=== PATIENT | female | born 1975 | race Caucasian/White ===

== ENCOUNTER 2017-07-05 22:27 | Emergency (ER) | payer OTHER ==
--- NOTE | 2017-07-05 22:40 | EDM.PDOC ---
ED HPI GENERAL MEDICAL PROBLEM - General Chief Complaint: Back Pain or Injury Stated Complaint: PAIN Time Seen by Provider: 07/05/17 22:39 Source of Information: Reports: Patient History Limitations: Reports: No Limitations - History of Present Illness INITIAL COMMENTS - FREE TEXT/NARRATIVE: 41 yo white female c/o left leg/thigh pain Onset: Today Onset Date: 07/05/17 Onset Time: 14:00 Duration: Hour(s): Location: Reports: Back, Lower Extremity, Left Quality: Reports: Burning Severity: Moderate Improves with: Reports: None Worsens with: Reports: None Context: Reports: Other (PMHx. Lumbar DDD w/ Disc Herniaton) Associated Symptoms: Reports: No Other Symptoms Left Lower Back Pain Score (Numeric/FACES): 10 - Related Data Allergies Allergy/AdvReac Type Severity Reaction Status Date / Time erythromycin lactobionate Allergy Severe Hives Verified 07/05/17 22:44 [From Erythrocin] Penicillins Allergy Intermediate Hives Verified 09/18/14 09:47 sulfamethoxazole Allergy Intermediate Hives Verified 07/05/17 22:44 [From Bactrim] trimethoprim [From Bactrim] Allergy Intermediate Hives Verified 07/05/17 22:44 rituximab [From Rituxan] Allergy Hives Verified 07/05/17 22:44 Sulfa (Sulfonamide Allergy Hives Verified 07/05/17 22:44 Antibiotics) vancomycin Allergy Hives Verified 07/05/17 22:44 ALL ANTIBI Allergy Hives Uncoded 07/05/17 22:44 Home Meds: Home Meds Atenolol [Tenormin] 25 mg PO DAILY 02/25/14 [History] atorvaSTATin [Lipitor] 40 mg PO BEDTIME 09/18/14 [History] Potassium Chloride [Klor-Con] 20 meq PO DAILY 09/27/15 [History] Divalproex Sodium [Depakote ER] 1,000 mg PO DAILY 07/05/17 [History] LORazepam [Ativan] 1 mg PO ASDIRECTED 07/05/17 [History] Methotrexate Sodium/PF [Methotrexate 25 mg/ml Vial] 1 ml IM WEEKLY 07/05/17 [ History] lamoTRIgine [Lamictal] 100 mg PO DAILY 07/05/17 [History] Past Medical History Musculoskeletal History: Reports: Fibromyalgia, RA Psychiatric History: Reports: Bipolar Other Endocrine/Metabolic History: blood sugar problems with being on steroids. Social & Family History - Tobacco Use Smoking Status *Q: Never Smoker Second Hand Smoke Exposure: No - Alcohol Use Days Per Week of Alcohol Use: 0 - Recreational Drug Use Recreational Drug Use: No - Living Situation & Occupation Living situation: Reports: , with Family ED ROS GENERAL - Review of Systems Review Of Systems: See Below Constitutional: Reports: No Symptoms HEENT: Reports: No Symptoms Respiratory: Reports: No Symptoms Cardiovascular: Reports: No Symptoms Endocrine: Reports: No Symptoms GI/Abdominal: Reports: No Symptoms Musculoskeletal: Reports: Back Pain, Leg Pain (left side) Skin: Reports: No Symptoms Neurological: Reports: Tingling (left leg) Psychiatric: Reports: No Symptoms Hematologic/Lymphatic: Reports: No Symptoms Immunologic: Reports: No Symptoms ED EXAM,LOWER BACK PAIN/INJURY - Physical Exam Exam: See Below Exam Limited By: No Limitations General Appearance: Alert, No Apparent Distress, Anxious Eye Exam: Bilateral Eye: EOMI, PERRL Ears: Normal External Exam Nose: Normal Inspection Throat/Mouth: Normal Inspection Head: Atraumatic Neck: Normal Inspection Respiratory/Chest: No Respiratory Distress Cardiovascular: Normal Peripheral Pulses GI/Abdominal: Normal Bowel Sounds Back Exam: Normal Inspection, Decreased Range of Motion Extremities: Normal Inspection, Leg Pain (left from back to thigh), Limited Range of Motion Neurological: Alert, Normal Mood/Affect, CN II-XII Intact, Difficulty Walking DTR - Lower Extremities: 2+: Knee (R), Knee (L) Psychiatric: Anxious Skin Exam: Warm, Dry Lymphatic: No Adenopathy Course - Vital Signs Last Recorded V/S: Last Vital Signs Temp 37.4 C 07/05/17 23:47 Pulse 79 07/05/17 23:47 Resp 18 07/05/17 23:47 BP 131/80 07/05/17 23:47 Pulse Ox 100 07/05/17 23:47 - Orders/Labs/Meds Orders: Active Orders 24 hr Category Date Time Status Orphenadrine [Norflex] Med 07/05/17 22:45 Active 60 mg IM Q12H Medication Orders Orphenadrine Citrate (Norflex) 60 mg IM Q12H ARIANNA Last Admin: 07/05/17 22:58 Dose: 60 mg Meds: Medications Generic Name Dose Route Start Last Admin Trade Name Freq PRN Reason Stop Dose Admin Orphenadrine Citrate 60 mg 07/05/17 22:45 07/05/17 22:58 Norflex IM 60 mg Q12H ARIANNA Administration Discontinued Medications Generic Name Dose Route Start Last Admin Trade Name Sarkis PRN Reason Stop Dose Admin Gabapentin 400 mg 07/05/17 22:47 07/05/17 23:10 Neurontin PO 07/05/17 22:48 400 mg ONETIME ONE Administration Hydromorphone HCl 1 mg 07/05/17 23:40 07/05/17 23:45 Dilaudid IM 07/05/17 23:41 1 mg ONETIME ONE Administration Ketorolac Tromethamine 30 mg 07/05/17 22:41 07/05/17 23:08 Toradol IM 07/05/17 22:42 30 mg ONETIME ONE Administration Ketorolac Tromethamine Confirm 07/05/17 23:04 07/05/17 23:09 Toradol Administered 07/05/17 23:05 Not Given Dose 30 mg .ROUTE .STK-MED ONE Departure - Departure Time of Disposition: 23:56 Disposition: Home, Self-Care 01 Condition: Fair Clinical Impression: Lumbar degenerative disc disease - Discharge Information Referrals: Cindy Wiseman MD [Primary Care Provider] - Forms: ED Department Discharge Additional Instructions: Rest No lifting , Pulling or Pushing Take your medications as prescribed by your PCP F/U w/ PCP - My Orders Last 24 Hours: My Active Orders 07/05/17 22:45 Orphenadrine [Norflex] 60 mg IM Q12H - Assessment/Plan Last 24 Hours: My Active Orders 07/05/17 22:45 Orphenadrine [Norflex] 60 mg IM Q12H
[2017-07-05] MEDS ORDERED: Ketorolac 30 MG/ML SDV IM ONE (22:41)
[2017-07-05] MEDS ORDERED: Gabapentin 400 MG Cap PO ONE (22:47)
[2017-07-05] MEDS ORDERED: Ketorolac 30 MG/ML SDV ONE (23:04)
[2017-07-05] MEDS ORDERED: HYDROmorphone 1 MG/ML Syringe IM ONE (23:40)
[2017-07-06] MEDS ORDERED: Promethazine 25 MG/ML SDV IM ONE (00:06)
[2017-07-06 00:17] VITALS: BP 131/90
== END 2017-07-06 00:20 | disposition home or self-care (01) ==
LOC: DL.ED 22:27
DX: M51.36 Other intervertebral disc degeneration, lumbar region (principal); Z88.1 Allergy status to other antibiotic agents; Z88.0 Allergy status to penicillin; Z88.2 Allergy status to sulfonamides; Z79.899 Other long term (current) drug therapy; R51 Headache
CPT/HCPCS: 70450; 72131; 96372; 99283; A9270; J1170; J1885; J2360; J2550

== ENCOUNTER 2019-09-09 01:20 | Emergency (ER) | payer OTHER ==
[2019-09-09] MEDS ORDERED: fentaNYL 100 MCG/2 ML SDV IVPUSH ONE (01:52)
[2019-09-09] MEDS ORDERED: methylPREDNISolone Sodium Succinate 125 MG/2 ML SDV IVPUSH ONE (01:52)
[2019-09-09 01:55] VITALS: BP 149/90; PULSE 99
--- NOTE | 2019-09-09 01:59 | EDM.PDOC ---
ED HPI GENERAL MEDICAL PROBLEM - General Chief Complaint: Allergic Reaction Stated Complaint: ALERGIC REACTION TO MEDS MAYBE Time Seen by Provider: 09/09/19 01:35 Source of Information: Reports: Patient History Limitations: Reports: No Limitations - History of Present Illness INITIAL COMMENTS - FREE TEXT/NARRATIVE: ED with c/o possible allergic reaction to cefdinir, states throat gets tight "every time she takes it". Put on last week in clinic due to cold sx. Hx RA on immunosuppressants. Has has sweats at night and fentanyl patches falling off. so pain not under control. Reports hx of fx tailbone and had joint injection "fgo bad and has raw nerve pain to left. Left Upper Leg Pain Score (Numeric/FACES): 8 - Related Data Allergies Allergy/AdvReac Type Severity Reaction Status Date / Time erythromycin lactobionate Allergy Severe Hives Verified 07/05/17 22:44 [From Erythrocin] Penicillins Allergy Intermediate Hives Verified 09/18/14 09:47 sulfamethoxazole Allergy Intermediate Hives Verified 07/05/17 22:44 [From Bactrim] trimethoprim [From Bactrim] Allergy Intermediate Hives Verified 07/05/17 22:44 rituximab [From Rituxan] Allergy Hives Verified 07/05/17 22:44 Sulfa (Sulfonamide Allergy Hives Verified 07/05/17 22:44 Antibiotics) vancomycin Allergy Hives Verified 07/05/17 22:44 ALL ANTIBI Allergy Hives Uncoded 07/05/17 22:44 Home Meds: Home Meds atenoloL [Tenormin] 25 mg PO DAILY 02/25/14 [History] atorvaSTATin [Lipitor] 40 mg PO BEDTIME 09/18/14 [History] Potassium Chloride [Klor-Con] 20 meq PO DAILY 09/27/15 [History] Divalproex Sodium [Depakote ER] 1,000 mg PO DAILY 07/05/17 [History] LORazepam [Ativan] 1 mg PO ASDIRECTED 07/05/17 [History] Methotrexate Sodium/PF [Methotrexate 25 mg/ml Vial] 1 ml IM WEEKLY 07/05/17 [ History] lamoTRIgine [Lamictal] 100 mg PO DAILY 07/05/17 [History] Past Medical History HEENT History: Reports: Impaired Vision Cardiovascular History: Reports: High Cholesterol, Hypertension Respiratory History: Reports: Asthma 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 Neurological History: Reports: Migraines Psychiatric History: Reports: Bipolar Other Endocrine/Metabolic History: blood sugar problems with being on steroids. Social & Family History - Caffeine Use Caffeine Use: Reports: Coffee - Living Situation & Occupation Living situation: Reports: , with Family ED ROS ALLERGIC REACTION - Review of Systems Review Of Systems: Comprehensive ROS is negative, except as noted in HPI. ED EXAM GENERAL NO PERIP PULSE - Physical Exam Exam: See Below Exam Limited By: No Limitations General Appearance: Alert, Anxious, Moderate Distress (No respiratory distress) Eye Exam: Bilateral Eye: EOMI, PERRL Ears: Normal External Exam Nose: Normal Inspection Throat/Mouth: Normal Inspection, Normal Lips, Normal Voice, No Airway Compromise Head: Atraumatic, Normocephalic Neck: Normal Inspection, Full Range of Motion Respiratory/Chest: No Respiratory Distress, Lungs Clear, Normal Breath Sounds. No: Decreased Breath Sounds, Rales, Rhonchi, Wheezing Cardiovascular: Normal Peripheral Pulses, Regular Rate, Rhythm GI/Abdominal: Normal Bowel Sounds, Soft Back Exam: Decreased Range of Motion, Paraspinal Tenderness (left lower) Extremities: Joint Swelling (arthritic deformities), Other Neurological: Alert, Oriented, Normal Cognition, No Motor/Sensory Deficits Psychiatric: Anxious Skin Exam: Warm, Dry, Normal Color, Wound/Incision (abrasion left upper chest from patches) Course - Vital Signs Last Recorded V/S: Last Vital Signs Temp 97.8 F 09/09/19 01:32 Pulse 99 09/09/19 01:32 Resp 16 09/09/19 01:32 BP 149/90 H 09/09/19 01:32 Pulse Ox 98 09/09/19 01:32 - Orders/Labs/Meds Labs: Laboratory Tests 09/09/19 09/09/19 09/09/19 Range/Units 02:12 02:12 02:12 WBC 12.8 H (5.0-10.0) 10^3/uL RBC 4.62 (4.2-5.4) 10^6/uL Hgb 14.5 D (12.0-16.0) g/dL Hct 41.5 (37.0-47.0) % MCV 89.8 (80-100) fL MCH 31.4 (27.0-34.0) pg MCHC 34.9 (33.0-35.0) g/dL Plt Count 287 D (150-450) 10^3/uL Neut % (Auto) 55.1 (42.2-75.2) % Lymph % (Auto) 33.9 (20.5-50.1) % Worth % (Auto) 9.5 H (2-8) % Eos % (Auto) 1.3 (1.0-3.0) % Baso % (Auto) 0.2 (0.0-1.0) % Add Manual Diff Yes Neutrophils % (Manual) 58 (42-75) % Band Neutrophils % 1 % Lymphocytes % (Manual) 33 (20-50) % Monocytes % (Manual) 8 (2-8) % Sodium 141 (135-145) mmol/L Potassium 3.6 (3.6-5.0) mmol/L Chloride 103 (101-111) mmol/L Carbon Dioxide 24.0 (21.0-31.0) mmol/L Anion Gap 17.6 BUN 12 (7-18) mg/dL Creatinine 0.7 (0.6-1.3) mg/dL Est Cr Clr Drug Dosing 79.00 mL/min Estimated GFR (MDRD) > 60 BUN/Creatinine Ratio 17.14 Glucose 104 (74-105) mg/dL Lactic Acid 3.8 H* (0.5-2.0) mmol/L Calcium 9.8 (8.4-10.2) mg/dl Total Bilirubin 0.6 (0.2-1.0) mg/dL AST 21 (10-42) IU/L ALT 26 (10-60) IU/L Alkaline Phosphatase 27 L (42-121) IU/L C-Reactive Protein (0.0-1.3) mg/dL Total Protein 7.6 (6.7-8.2) g/dl Albumin 5.1 (3.2-5.5) g/dl Globulin 2.5 Albumin/Globulin Ratio 2.04 09/09/19 Range/Units 02:12 WBC (5.0-10.0) 10^3/uL RBC (4.2-5.4) 10^6/uL Hgb (12.0-16.0) g/dL Hct (37.0-47.0) % MCV (80-100) fL MCH (27.0-34.0) pg MCHC (33.0-35.0) g/dL Plt Count (150-450) 10^3/uL Neut % (Auto) (42.2-75.2) % Lymph % (Auto) (20.5-50.1) % Worth % (Auto) (2-8) % Eos % (Auto) (1.0-3.0) % Baso % (Auto) (0.0-1.0) % Add Manual Diff Neutrophils % (Manual) (42-75) % Band Neutrophils % % Lymphocytes % (Manual) (20-50) % Monocytes % (Manual) (2-8) % Sodium (135-145) mmol/L Potassium (3.6-5.0) mmol/L Chloride (101-111) mmol/L Carbon Dioxide (21.0-31.0) mmol/L Anion Gap BUN (7-18) mg/dL Creatinine (0.6-1.3) mg/dL Est Cr Clr Drug Dosing mL/min Estimated GFR (MDRD) BUN/Creatinine Ratio Glucose (74-105) mg/dL Lactic Acid (0.5-2.0) mmol/L Calcium (8.4-10.2) mg/dl Total Bilirubin (0.2-1.0) mg/dL AST (10-42) IU/L ALT (10-60) IU/L Alkaline Phosphatase (42-121) IU/L C-Reactive Protein < 0.5 (0.0-1.3) mg/dL Total Protein (6.7-8.2) g/dl Albumin (3.2-5.5) g/dl Globulin Albumin/Globulin Ratio Meds: Medications Discontinued Medications Generic Name Dose Route Start Last Admin Trade Name Freq PRN Reason Stop Dose Admin Fentanyl 50 mcg 09/09/19 01:52 09/09/19 02:15 Sublimaze IVPUSH 09/09/19 01:53 50 mcg ONETIME ONE Administration Lorazepam 1 mg 09/09/19 02:10 09/09/19 02:15 Ativan PO 09/09/19 02:11 1 mg ONETIME ONE Administration Methylprednisolone Sodium Succinate 125 mg 09/09/19 01:52 09/09/19 02:06 Solu-Medrol IVPUSH 09/09/19 01:53 125 mg ONETIME ONE Administration - Re-Assessments/Exams Free Text/Narrative Re-Assessment/Exam: Port accessed for steroid. Med infused without difficulty and easily accessed shortly few minutes after patient c/o burning at site of needle demanding access be removed. Pain medication given IM and almost immediate improvement in symptoms. Patient does voice concern or "sx being related to withdrawal." [facility] ecord reviewed. Patient should have enough medication to last through to clinic follow up with PCP early this week . Departure - Departure Time of Disposition: 03:07 Disposition: Home, Self-Care 01 Condition: Good Clinical Impression: Chronic pain, Anxiety about health - Discharge Information *PRESCRIPTION DRUG MONITORING PROGRAM REVIEWED*: No *COPY OF PRESCRIPTION DRUG MONITORING REPORT IN PATIENT CHADD: No Instructions: Chronic Pain, Adult Referrals: Cindy Wiseman MD [Primary Care Provider] - Forms: ED Department Discharge Additional Instructions: stop antibiotic follow up in clinic with Dr Wiseman Increase fluids today Sepsis Event Note - Focused Exam Vital Signs: Vital Signs Temp Pulse Resp BP Pulse Ox 09/09/19 01:32 97.8 F 99 16 149/90 H 98 Date Exam was Performed: 09/09/19 Time Exam was Performed: 05:32
[2019-09-09] MEDS ORDERED: LORazepam 1 MG Tab PO ONE (02:10)
[2019-09-09 02:39] LABS: ANION GAP 17.6; CHLORIDE,CL 103 mmol/L (101-111); SODIUM,NA 141 mmol/L (135-145)
== END 2019-09-09 03:26 | disposition home or self-care (01) ==
LOC: DL.ED 01:20
DX: G89.29 Other chronic pain (principal); F41.9 Anxiety disorder, unspecified; I10 Essential (primary) hypertension; J45.909 Unspecified asthma, uncomplicated; Z88.1 Allergy status to other antibiotic agents; Z88.0 Allergy status to penicillin; Z88.2 Allergy status to sulfonamides; Z88.7 Allergy status to serum and vaccine; Z88.8 Allergy status to other drugs, medicaments and biological substances; Z79.899 Other long term (current) drug therapy
CPT/HCPCS: 36415; 80053; 83605; 85025; 86140; 96372; 96374; 99283; A9270; J2930; J3010

== ENCOUNTER 2020-04-04 12:15 | Emergency (ER) | payer OTHER ==
[~2020-04-04 12:15] MED LIST: Activated Charcoal/Water Susp 50 GM/240 ML Tube PO ONE; Ondansetron 4 MG/2 ML SDV IVPUSH ONE; Sodium Chloride 0.9% 1,000 ML IV ONE
[2020-04-04] MEDS ORDERED: Iopamidol 612 MG/ML 100 ML Bottle IVPUSH ONE (12:51)
[2020-04-04 12:53] LABS: ACETAMINOPHEN 10 ug/mL (10-30 (Therapeutic)); ANION GAP 15.3 mEq/L (7-13); CHLORIDE,CL 104 mmol/L (98-107); SODIUM,NA 143 mmol/L (136-145)
[2020-04-04 13:33] LABS: PTT,PARTIAL THROMBOPLSTIN TIME 22.9 SEC (22.0-34.0)
--- NOTE | 2020-04-04 14:37 | CR ---
PROCEDURE INFORMATION: Exam: XR Right Knee Exam date and time: 04/04/2020 1:46 PM Age: 44 years old Clinical indication: Other: Fall, recent surgery; Prior surgery; Surgery date: <1 month; Surgery type: 1 week ago TECHNIQUE: Imaging protocol: XR Right knee. Views: 1 or 2 views. COMPARISON: MR Knee wo Cont Rt 08/08/2019 9:42 AM FINDINGS: Bones/joints: Patient has undergone knee replacement with a femoral condyle prosthesis and a tibial plateau prosthesis. Patellofemoral joint degenerative changes posterior aspect of the patella is again noted. There is large amount of swelling peer to the patella in the soft tissues. No acute fractures identified. Soft tissues: See "Bones/joints" finding. IMPRESSION: Postsurgical changes with. No of fracture or dislocation. There is a large amount of soft tissue swelling superior to the patella on the lateral view.
--- NOTE | 2020-04-04 14:46 | CT ---
PROCEDURE INFORMATION: Exam: CT Cervical Spine Without Contrast Exam date and time: 04/04/2020 2:05 PM Age: 44 years old Clinical indication: Other: Fall, head neck face injury TECHNIQUE: Imaging protocol: Computed tomography images of the cervical spine without contrast. Radiation optimization: All CT scans at this facility use at least one of these dose optimization techniques: automated exposure control; mA and/or kV adjustment per patient size (includes targeted exams where dose is matched to clinical indication); or iterative reconstruction. COMPARISON: No relevant prior studies available. FINDINGS: Vertebrae: Mild straightening of the cervical spine with reversal of the normal cervical lordosis. C2-C3: Patient has marked hypertrophic changes on the right at C2-C3 with inferior neural foraminal narrowing at this level. C3-C4: Uncovertebral hypertrophic changes at C3-C4 causing bilateral inferior neural foraminal narrowing. C4-C5: Anterior osteophyte formation C5-C6: Anterior osteophyte formation C6-C7: No significant disc protrusion. No severe spinal canal stenosis. No significant neural foraminal narrowing. C7-T1: No significant disc protrusion. No severe spinal canal stenosis. No significant neural foraminal narrowing. Soft tissues: Unremarkable. Lungs: Lung apices are normal. IMPRESSION: Degenerative changes in the cervical spine as described above. No evidence of acute fracture. Some reversal of the normal cervical lordosis.
--- NOTE | 2020-04-04 14:50 | CT ---
PROCEDURE INFORMATION: Exam: CT Maxillofacial Without Contrast Exam date and time: 04/04/2020 2:05 PM Age: 44 years old Clinical indication: Other: Fall, head neck face injury TECHNIQUE: Imaging protocol: Computed tomography images of the face without contrast. Radiation optimization: All CT scans at this facility use at least one of these dose optimization techniques: automated exposure control; mA and/or kV adjustment per patient size (includes targeted exams where dose is matched to clinical indication); or iterative reconstruction. COMPARISON: No relevant prior studies available. FINDINGS: Orbits: Patient has swelling over left and superior aspect of the right orbit. The globe appears intact. Bones/joints: See "Soft tissues" finding. Sinuses: See "Nasal cavity" finding. Nasal cavity: There is congestion in the right nasal passage. There is some soft tissue thickening seen in the region of both ostiomeatal complexes. There is minimal coastal thickening in the right maxillary sinus but no air levels are identified. Soft tissues: There is soft tissue swelling over the left frontal bone. No underlying fractures identified. The left soft tissue swelling extends in front of the left eye. The globe appears intact. IMPRESSION: No evidence of a acute fracture. Soft tissue swelling anterior to the left and left. No underlying fracture is identified.
--- NOTE | 2020-04-04 14:53 | CT ---
PROCEDURE INFORMATION: Exam: CT Head Without Contrast Exam date and time: 04/04/2020 2:05 PM Age: 44 years old Clinical indication: Other: Fall, head neck face injury TECHNIQUE: Imaging protocol: Computed tomography of the head without contrast. Radiation optimization: All CT scans at this facility use at least one of these dose optimization techniques: automated exposure control; mA and/or kV adjustment per patient size (includes targeted exams where dose is matched to clinical indication); or iterative reconstruction. COMPARISON: No relevant prior studies available. FINDINGS: Brain: See "Ventricles" finding. Ventricles: Intracranially the ventricular system appears normal in size and position. There is minimal frontal lobe atrophy. Bones/joints: Unremarkable. No acute fracture. Sinuses: Visualized sinuses are unremarkable. No fluid levels. Mastoid air cells: Visualized mastoid air cells are well aerated. Soft tissues: Soft Tissue swelling and subcutaneous hematoma over the left frontal bone no underlying fracture. IMPRESSION: Soft tissue swelling consistent with a subcutaneous hematoma along the frontal bone extending anterior to the left eye. Mild frontal lobe atrophy.
[2020-04-04 15:02] VITALS: BP 138/95; PULSE 83
--- NOTE | 2020-04-04 15:24 | EDM.PDOCBH ---
Scribed by Nandini Mccloud 04/04/20 1524 for Oumou Mccord MD ED HPI GENERAL MEDICAL PROBLEM - General Chief Complaint: Drug or Alcohol Abuse Stated Complaint: AMBULANCE Time Seen by Provider: 04/04/20 12:20 Source of Information: Reports: Patient, EMS, EMS Notes Reviewed, RN, RN Notes Reviewed History Limitations: Reports: No Limitations - History of Present Illness INITIAL COMMENTS - FREE TEXT/NARRATIVE: Patient arrives to ED by [facility]. Patient states that on 03/27/20 she had right knee surgery. She got 90 Percocet/90 days. She took a handful of the Remeron and Lamictal. She took a handful of each (approximately 10 tablets of each medication) at 10:30 hours. She is also on [place]. Around 11 A.M. she fell and bumped her head. She thinks she had a seizure with no loss of consciousness. No nausea. She has knee pain. Onset: Today Severity: Severe Improves with: Reports: None Worsens with: Reports: None Associated Symptoms: Reports: No Other Symptoms Generalized Pain Score (Numeric/FACES): 10 - Related Data Allergies Allergy/AdvReac Type Severity Reaction Status Date / Time erythromycin lactobionate Allergy Severe Hives Verified 07/05/17 22:44 [From Erythrocin] Penicillins Allergy Intermediate Hives Verified 09/18/14 09:47 sulfamethoxazole Allergy Intermediate Hives Verified 07/05/17 22:44 [From Bactrim] trimethoprim [From Bactrim] Allergy Intermediate Hives Verified 07/05/17 22:44 rituximab [From Rituxan] Allergy Hives Verified 07/05/17 22:44 Sulfa (Sulfonamide Allergy Hives Verified 07/05/17 22:44 Antibiotics) vancomycin Allergy Hives Verified 07/05/17 22:44 ALL ANTIBI Allergy Hives Uncoded 07/05/17 22:44 Home Meds: Home Meds atenoloL [Tenormin] 25 mg PO DAILY 02/25/14 [History] Potassium Chloride [Klor-Con] 20 meq PO DAILY 09/27/15 [History] Divalproex Sodium [Depakote ER] 1,250 mg PO DAILY 07/05/17 [History] Methotrexate Sodium/PF [Methotrexate 25 mg/ml Vial] 1 ml IM WEEKLY 07/05/17 [History] lamoTRIgine [Lamictal] 100 mg PO DAILY 07/05/17 [History] Meloxicam 1 tab PO DAILY 04/04/20 [History] Mirtazapine 45 mg PO DAILY 04/04/20 [History] calcitrioL [Calcitriol] 1 cap PO ASDIRECTED 04/04/20 [History] Past Medical History HEENT History: Reports: Impaired Vision Cardiovascular History: Reports: High Cholesterol, Hypertension Respiratory History: Reports: Asthma [employer] History: Reports: Other (See Below) Other [employer] History: tubal Musculoskeletal History: Reports: Fibromyalgia, RA Other Musculoskeletal History: gittelmans disorder. Neurological History: Reports: Migraines Psychiatric History: Reports: Bipolar Other Endocrine/Metabolic History: blood sugar problems with being on steroids. Social & Family History - Family History Family Medical History: Noncontributory - Caffeine Use Caffeine Use: Reports: Coffee - Living Situation & Occupation Living situation: Reports: , with Family ED ROS GENERAL - Review of Systems Review Of Systems: Comprehensive ROS is negative, except as noted in HPI. ED EXAM, BEHAVIORAL HEALTH - Physical Exam Exam: See Below Exam Limited By: No Limitations General Appearance: Alert, WD/WN, No Apparent Distress Head: Atraumatic, Normocephalic Neck: Other (she has a C-collar on. ) Respiratory/Chest: No Respiratory Distress, Lungs Clear, Normal Breath Sounds, No Accessory Muscle Use, Chest Non-Tender Cardiovascular: Normal Peripheral Pulses, Regular Rate, Rhythm, No Edema, No Gallop, No JVD, No Murmur, No Rub Back Exam: Normal Inspection Skin Exam: Other (bruise around right knee and lower leg.) EKG INTERPRETATION EKG Date: 04/04/20 Time: 13:16 Rhythm: Other (sinus tachycardia\) Rate (Beats/Min): 106 [place]: Normal P-Wave: Present QRS: Other (baseline wonder, otherwise normal QRS.) ST-T: Normal QT: Normal COURSE, BEHAVIORAL HEALTH COMP - Course Vital Signs: Last Vital Signs Temp 98.8 F 04/04/20 15:01 Pulse 83 04/04/20 15:01 Resp 14 04/04/20 15:01 BP 138/95 H 04/04/20 15:01 Pulse Ox 100 04/04/20 15:01 Orders, Labs, Meds: Active Orders 24 hr Category Date Time Status EKG 12 Lead [EKG Documentation Completion] [RC] STAT Care 04/04/20 12:54 Active Implanted Port Access [RC] ONETIME Care 04/04/20 12:08 Active Consult to Poison Control [CONS] Urgent Cons 04/04/20 12:15 Ordered CULTURE URINE [RM] Stat Lab 04/04/20 13:04 Received LAMOTRIGINE, SERUM [REF] Routine Lab 04/04/20 12:24 Received VALPROIC ACID [REF] Stat Lab 04/04/20 12:24 Received Laboratory Tests 04/04/20 04/04/20 04/04/20 Range/Units 12:24 12:24 12:24 WBC 9.7 (5.0-10.0) 10^3/uL RBC 3.63 L (4.2-5.4) 10^6/uL Hgb 11.2 L D (12.0-16.0) g/dL Hct 33.1 L (37.0-47.0) % MCV 91.2 (80-100) fL MCH 30.9 (27.0-34.0) pg MCHC 33.8 (33.0-35.0) g/dL Plt Count 368 D (150-450) 10^3/uL Neut % (Auto) 66.0 (42.2-75.2) % Lymph % (Auto) 22.1 (20.5-50.1) % [place] % (Auto) 7.6 (2-8) % Eos % (Auto) 3.9 H (1.0-3.0) % Baso % (Auto) 0.4 (0.0-1.0) % PT (9.0-12.0) SEC INR (0.9-1.2) APTT (22.0-34.0) SEC Sodium 143 (136-145) mmol/L Potassium 3.3 L (3.5-5.1) mmol/L Chloride 104 (98-107) mmol/L Carbon Dioxide 27 (21-32) mmol/L Anion Gap 15.3 H (7-13) mEq/L BUN 8 (7-18) mg/dL Creatinine 0.81 (0.55-1.02) mg/dL Est Cr Clr Drug Dosing TNP Estimated GFR (MDRD) > 60 BUN/Creatinine Ratio 9.9 (No establ ref range) Glucose 91 (74-99) mg/dL Calcium 8.9 (8.5-10.1) mg/dL Total Bilirubin 0.4 (0.2-1.0) mg/dL AST 13 L (15-37) U/L ALT 23 (14-59) U/L Alkaline Phosphatase 22 L (46-116) U/L Total Protein 6.7 (6.4-8.2) g/dL Albumin 3.9 (3.4-5.0) g/dL Globulin 2.8 Albumin/Globulin Ratio 1.4 Urine Color (YELLOW) Urine Appearance (CLEAR) Urine pH (5.0-9.0) Ur Specific [place] (1.005-1.030) Urine Protein (NEGATIVE) Urine Glucose (UA) (NEGATIVE) Urine Ketones (NEGATIVE) Urine Occult Blood (NEGATIVE) Urine Nitrite (NEGATIVE) Urine Bilirubin (NEGATIVE) Urine Urobilinogen (0.2-1.0) mg/dL Ur Leukocyte Esterase (NEGATIVE) Urine RBC /HPF Urine WBC (0-5/HPF) /HPF Ur Epithelial Cells (NOT SEEN) /HPF Amorphous Sediment (NOT SEEN) /HPF Urine Bacteria (0-FEW/HPF) /HPF Urine Mucus (NOT SEEN) /LPF Urine HCG, Qual Salicylates < 2.8 L (2.8-20(Therapeutic)) mg/dL Urine Opiates Screen (NEGATIVE) Ur Oxycodone Screen (NEGATIVE) Urine Methadone Screen (NEGATIVE) Acetaminophen 10 (10-30 (Therapeutic)) ug/mL Ur Barbiturates Screen (NEGATIVE) U Tricyclic Antidepress (NEGATIVE) Ur Phencyclidine Scrn (NEGATIVE) Ur Amphetamine Screen (NEGATIVE) U Methamphetamines Scrn (NEGATIVE) Urine MDMA Screen (NEGATIVE) U Benzodiazepines Scrn (NEGATIVE) Urine Cocaine Screen (NEGATIVE) U Marijuana (THC) Screen (NEGATIVE) Ethyl Alcohol < 3 (0) mg/dL 04/04/20 04/04/20 04/04/20 Range/Units 12:24 13:04 13:04 WBC (5.0-10.0) 10^3/uL RBC (4.2-5.4) 10^6/uL Hgb (12.0-16.0) g/dL Hct (37.0-47.0) % MCV (80-100) fL MCH (27.0-34.0) pg MCHC (33.0-35.0) g/dL Plt Count (150-450) 10^3/uL Neut % (Auto) (42.2-75.2) % Lymph % (Auto) (20.5-50.1) % [place] % (Auto) (2-8) % Eos % (Auto) (1.0-3.0) % Baso % (Auto) (0.0-1.0) % PT 11.0 (9.0-12.0) SEC INR 1.2 (0.9-1.2) APTT 22.9 (22.0-34.0) SEC Sodium (136-145) mmol/L Potassium (3.5-5.1) mmol/L Chloride (98-107) mmol/L Carbon Dioxide (21-32) mmol/L Anion Gap (7-13) mEq/L BUN (7-18) mg/dL Creatinine (0.55-1.02) mg/dL Est Cr Clr Drug Dosing Estimated GFR (MDRD) BUN/Creatinine Ratio (No establ ref range) Glucose (74-99) mg/dL Calcium (8.5-10.1) mg/dL Total Bilirubin (0.2-1.0) mg/dL AST (15-37) U/L ALT (14-59) U/L Alkaline Phosphatase (46-116) U/L Total Protein (6.4-8.2) g/dL Albumin (3.4-5.0) g/dL Globulin Albumin/Globulin Ratio Urine Color (YELLOW) Urine Appearance (CLEAR) Urine pH (5.0-9.0) Ur Specific [place] (1.005-1.030) Urine Protein (NEGATIVE) Urine Glucose (UA) (NEGATIVE) Urine Ketones (NEGATIVE) Urine Occult Blood (NEGATIVE) Urine Nitrite (NEGATIVE) Urine Bilirubin (NEGATIVE) Urine Urobilinogen (0.2-1.0) mg/dL Ur Leukocyte Esterase (NEGATIVE) Urine RBC /HPF Urine WBC (0-5/HPF) /HPF Ur Epithelial Cells (NOT SEEN) /HPF Amorphous Sediment (NOT SEEN) /HPF Urine Bacteria (0-FEW/HPF) /HPF Urine Mucus (NOT SEEN) /LPF Urine HCG, Qual Negative Salicylates (2.8-20(Therapeutic)) mg/dL Urine Opiates Screen Negative (NEGATIVE) Ur Oxycodone Screen Positive H (NEGATIVE) Urine Methadone Screen Negative (NEGATIVE) Acetaminophen (10-30 (Therapeutic)) ug/mL Ur Barbiturates Screen Negative (NEGATIVE) U Tricyclic Antidepress Negative (NEGATIVE) Ur Phencyclidine Scrn Negative (NEGATIVE) Ur Amphetamine Screen Negative (NEGATIVE) U Methamphetamines Scrn Negative (NEGATIVE) Urine MDMA Screen Negative (NEGATIVE) U Benzodiazepines Scrn Negative (NEGATIVE) Urine Cocaine Screen Negative (NEGATIVE) U Marijuana (THC) Screen Positive H (NEGATIVE) Ethyl Alcohol (0) mg/dL 04/04/20 Range/Units 13:04 WBC (5.0-10.0) 10^3/uL RBC (4.2-5.4) 10^6/uL Hgb (12.0-16.0) g/dL Hct (37.0-47.0) % MCV (80-100) fL MCH (27.0-34.0) pg MCHC (33.0-35.0) g/dL Plt Count (150-450) 10^3/uL Neut % (Auto) (42.2-75.2) % Lymph % (Auto) (20.5-50.1) % [place] % (Auto) (2-8) % Eos % (Auto) (1.0-3.0) % Baso % (Auto) (0.0-1.0) % PT (9.0-12.0) SEC INR (0.9-1.2) APTT (22.0-34.0) SEC Sodium (136-145) mmol/L Potassium (3.5-5.1) mmol/L Chloride (98-107) mmol/L Carbon Dioxide (21-32) mmol/L Anion Gap (7-13) mEq/L BUN (7-18) mg/dL Creatinine (0.55-1.02) mg/dL Est Cr Clr Drug Dosing Estimated GFR (MDRD) BUN/Creatinine Ratio (No establ ref range) Glucose (74-99) mg/dL Calcium (8.5-10.1) mg/dL Total Bilirubin (0.2-1.0) mg/dL AST (15-37) U/L ALT (14-59) U/L Alkaline Phosphatase (46-116) U/L Total Protein (6.4-8.2) g/dL Albumin (3.4-5.0) g/dL Globulin Albumin/Globulin Ratio Urine Color Yellow (YELLOW) Urine Appearance Cloudy (CLEAR) Urine pH 6.5 (5.0-9.0) Ur Specific [place] 1.015 (1.005-1.030) Urine Protein Trace H (NEGATIVE) Urine Glucose (UA) Negative (NEGATIVE) Urine Ketones 40 H (NEGATIVE) Urine Occult Blood Negative (NEGATIVE) Urine Nitrite Negative (NEGATIVE) Urine Bilirubin Negative (NEGATIVE) Urine Urobilinogen 0.2 (0.2-1.0) mg/dL Ur Leukocyte Esterase Negative (NEGATIVE) Urine RBC 0-5 /HPF Urine WBC 5-10 H (0-5/HPF) /HPF Ur Epithelial Cells Moderate H (NOT SEEN) /HPF Amorphous Sediment Moderate H (NOT SEEN) /HPF Urine Bacteria Moderate H (0-FEW/HPF) /HPF Urine Mucus Many H (NOT SEEN) /LPF Urine HCG, Qual Salicylates (2.8-20(Therapeutic)) mg/dL Urine Opiates Screen (NEGATIVE) Ur Oxycodone Screen (NEGATIVE) Urine Methadone Screen (NEGATIVE) Acetaminophen (10-30 (Therapeutic)) ug/mL Ur Barbiturates Screen (NEGATIVE) U Tricyclic Antidepress (NEGATIVE) Ur Phencyclidine Scrn (NEGATIVE) Ur Amphetamine Screen (NEGATIVE) U Methamphetamines Scrn (NEGATIVE) Urine MDMA Screen (NEGATIVE) U Benzodiazepines Scrn (NEGATIVE) Urine Cocaine Screen (NEGATIVE) U Marijuana (THC) Screen (NEGATIVE) Ethyl Alcohol (0) mg/dL Medications Discontinued Medications Generic Name Dose Route Start Last Admin Trade Name Sarkis PRN Reason Stop Dose Admin Charcoal 50 gm 04/04/20 12:14 04/04/20 12:32 Actidose-Aqua PO 04/04/20 12:15 50 gm ONETIME ONE Administration Sodium Chloride 1,000 mls @ 999 mls/hr 04/04/20 12:13 04/04/20 12:32 Normal Saline IV 04/04/20 13:13 999 mls/hr .BOLUS ONE Administration Iopamidol 100 ml 04/04/20 12:51 Isovue-300 (61%) IVPUSH 04/04/20 12:52 ONETIME ONE Ondansetron HCl 4 mg 04/04/20 12:14 04/04/20 12:33 Zofran IVPUSH 04/04/20 12:15 4 mg ONETIME ONE Administration Re-Assessment/Re-Exam: Right knee x-ray: Postsurgical changes with. No of fracture or dislocation. There is a large amount of soft tissue swelling superior to the patella on the lateral view. See rad report. Head CT: Soft tissue swelling consistent with a subcutaneous hematoma along the frontal bone extending anterior to the left eye. Mild frontal lobe atrophy. See rad report. CT cervical spine: Degenerative changes in the cervical spine as described above. No evidence of acute fracture. Some reversal of the normal cervical lordosis. See rad report/ CT max/sinus: No evidence of acute fracture. Soft tissue swelling anterior to the left. No underlying fracture is identified. See rad report. Poison Control was contacted and recommended 4 hours of monitoring for the Lamictal and 12 hours of monitoring for the Remeron, or until she is no longer sedated. Labs and EKG ordered per recommendation. Departure - Departure Time of Disposition: 15:13 Disposition: DC/Tfer to Acute Hospital 02 Condition: Poor Clinical Impression: Overdose of medication Qualifiers: Encounter type: initial encounter Injury intent: undetermined intent Qualified Code(s): T50.904A - Poisoning by unspecified drugs, medicaments and biological substances, undetermined, initial encounter Facial contusion Qualifiers: Encounter type: initial encounter Qualified Code(s): S00.83XA - Contusion of other part of head, initial encounter - Discharge Information *PRESCRIPTION DRUG MONITORING PROGRAM REVIEWED*: Not Applicable *COPY OF PRESCRIPTION DRUG MONITORING REPORT IN PATIENT CHADD: Not Applicable Referrals: Cindy Wiseman MD [Primary Care Provider] - Forms: ED Department Discharge, Interfacility Transfer [facility] Sepsis Event Note (ED) - Focused Exam Vital Signs: Vital Signs Temp Pulse Resp BP Pulse Ox 04/04/20 15:01 98.8 F 83 14 138/95 H 100 04/04/20 12:00 97.8 F 99 16 145/85 H 100 - My Orders Last 24 Hours: My Active Orders 04/04/20 12:08 Implanted Port Access [RC] ONETIME 04/04/20 12:15 Consult to Poison Control [CONS] Urgent 04/04/20 12:24 LAMOTRIGINE, SERUM [REF] Routine VALPROIC ACID [REF] Stat 04/04/20 12:54 EKG 12 Lead [EKG Documentation Completion] [RC] STAT 04/04/20 13:04 CULTURE URINE [RM] Stat - Assessment/Plan Last 24 Hours: My Active Orders 04/04/20 12:08 Implanted Port Access [RC] ONETIME 04/04/20 12:15 Consult to Poison Control [CONS] Urgent 04/04/20 12:24 LAMOTRIGINE, SERUM [REF] Routine VALPROIC ACID [REF] Stat 04/04/20 12:54 EKG 12 Lead [EKG Documentation Completion] [RC] STAT 04/04/20 13:04 CULTURE URINE [RM] Stat I have read and agree with the documentation that has been completed regarding this visit. By signing this record, I attest that the documentation was completed in my physical presence and is an accurate record of the encounter.
== END 2020-04-04 16:02 ==
LOC: DL.ED 12:15
DX: T50.904A Poisoning by unspecified drugs, medicaments and biological substances, undetermined, initial encounter (principal); S00.83XA Contusion of other part of head, initial encounter; S80.01XA Contusion of right knee, initial encounter; R00.0 Tachycardia, unspecified; I10 Essential (primary) hypertension; F31.9 Bipolar disorder, unspecified; G43.909 Migraine, unspecified, not intractable, without status migrainosus; Z88.1 Allergy status to other antibiotic agents; Z88.0 Allergy status to penicillin; Z88.2 Allergy status to sulfonamides; Z88.8 Allergy status to other drugs, medicaments and biological substances; W19.XXXA Unspecified fall, initial encounter; W22.8XXA Striking against or struck by other objects, initial encounter
CPT/HCPCS: 36415; 70450; 70486; 72125; 73560; 80053; 80164; 80175; 80305; 80307; 81001; 81025; 85025; 85610; 85730; 87086; 93005; 99285; J2405; J7030; 96374

== ENCOUNTER 2021-04-12 08:06 | Emergency (ER) | payer MEDICAID, OTHER ==
--- NOTE | 2021-04-12 07:39 | EDM.PDOC ---
ED HPI GENERAL MEDICAL PROBLEM - General Chief Complaint: Drug or Alcohol Abuse Stated Complaint: IN BY AMBUALNCE Time Seen by Provider: 04/12/21 07:45 Source of Information: Reports: Patient, EMS, Old Records, RN, RN Notes Reviewed History Limitations: Reports: No Limitations - History of Present Illness INITIAL COMMENTS - FREE TEXT/NARRATIVE: Pt arrives from home by ambulance with report of Clonidine overdose. Pt states she has become dependent on Fentanyl after right knee surgery by Dr. Tovar 2 weeks ago [facility] in [place]. Pt admits that she abused her Fentanyl and ran out. She had Clonidine 0.1mg tablets on hand from previous opiate withdrawal treatment, so at 1700HRS yesterday (04/11/21) she began taking 1 to 4 tablets every few hours. She admits to taking about 20 tablets of Clonidine 0.1mg over the past 12 or so hours. She last took 4 tablets at 0500HRS. Pt admits to drowsiness and "total body pain". Denies chest pain, shortness of breath, or nausea. Denies suicidal intent. Onset: Unknown/Unsure Location: Reports: Generalized Severity: Severe - Related Data Allergies Allergy/AdvReac Type Severity Reaction Status Date / Time erythromycin lactobionate Allergy Severe Hives Verified 07/05/17 22:44 [From Erythrocin] Penicillins Allergy Intermediate Hives Verified 09/18/14 09:47 sulfamethoxazole Allergy Intermediate Hives Verified 07/05/17 22:44 [From Bactrim] trimethoprim [From Bactrim] Allergy Intermediate Hives Verified 07/05/17 22:44 rituximab [From Rituxan] Allergy Hives Verified 07/05/17 22:44 Sulfa (Sulfonamide Allergy Hives Verified 07/05/17 22:44 Antibiotics) vancomycin Allergy Hives Verified 07/05/17 22:44 ALL ANTIBI Allergy Hives Uncoded 07/05/17 22:44 Home Meds: Home Meds atenoloL [Tenormin] 25 mg PO DAILY 02/25/14 [History] Potassium Chloride [Klor-Con] 20 meq PO DAILY 09/27/15 [History] Divalproex Sodium [Depakote ER] 1,250 mg PO DAILY 07/05/17 [History] Methotrexate Sodium/PF [Methotrexate 25 mg/ml Vial] 1 ml IM WEEKLY 07/05/17 [History] lamoTRIgine [Lamictal] 100 mg PO DAILY 07/05/17 [History] Meloxicam 1 tab PO DAILY 04/04/20 [History] Mirtazapine 45 mg PO DAILY 04/04/20 [History] calcitrioL [Calcitriol] 1 cap PO ASDIRECTED 04/04/20 [History] Past Medical History HEENT History: Reports: Impaired Vision Cardiovascular History: Reports: High Cholesterol, Hypertension Respiratory History: Reports: Asthma 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 Neurological History: Reports: Migraines Psychiatric History: Reports: Addiction, Bipolar Other Endocrine/Metabolic History: blood sugar problems with being on steroids. Social & Family History - Family History Family Medical History: No Pertinent Family History - Caffeine Use Caffeine Use: Reports: Coffee - Living Situation & Occupation Living situation: Reports: , with Family ED ROS GENERAL - Review of Systems Review Of Systems: Comprehensive ROS is negative, except as noted in HPI. ED EXAM, GENERAL - Physical Exam Exam: See Below Exam Limited By: No Limitations General Appearance: Alert, No Apparent Distress, Lethargic Eye Exam: Bilateral Eye: Abnormal Pupil (Pupils equally constricted ~2mm), EOMI, PERRL Ears: Hearing Grossly Normal Nose: Normal Inspection, Normal Mucosa, No Blood Throat/Mouth: Normal Lips, Normal Oropharynx, Normal Voice, No Airway Compromise, Other (Dry oral mucosa) Head: Atraumatic, Normocephalic Neck: Normal Inspection, Supple, Non-Tender, Full Range of Motion Respiratory/Chest: No Respiratory Distress, Lungs Clear, Normal Breath Sounds, No Accessory Muscle Use, Chest Non-Tender Cardiovascular: Normal Peripheral Pulses, Regular Rate, Rhythm, No Edema, Bradycardia GI/Abdominal: Normal Bowel Sounds, Soft, Non-Tender, No Organomegaly, No Distention, No Abnormal Bruit, No Mass Extremities: No Pedal Edema, Normal Capillary Refill Neurological: Oriented, No Motor/Sensory Deficits, Other (Drowsy, alert and responsive to verbal stimuli, answers questions and follows commands) Psychiatric: Depressed Mood, Flat Affect Skin Exam: Warm, Dry, Intact, No Rash, Pallor. No: Ecchymosis, Jaundice, Petechiae #1 Interpretation EKG Date: 04/12/21 Time: 07:50 Rhythm: Other (Sinus yareli) Rate (Beats/Min): 42 [place]: Normal P-Wave: Present QRS: Normal ST-T: Normal QT: Normal Comparison: NA - No Prior EKG Course - Vital Signs Last Recorded V/S: Last Vital Signs Temp 97.7 F 04/12/21 07:43 Pulse 44 L 04/12/21 07:43 Resp 16 04/12/21 07:43 BP 131/104 H 04/12/21 07:43 Pulse Ox 97 04/12/21 07:43 131/104 HR 42 RR 16 Temp: 97.7F O2 Sat: 97% RA - Orders/Labs/Meds Orders: Active Orders 24 hr Category Date Time Status Blood Glucose Check, Bedside [RC] ONETIME Care 04/12/21 07:39 Active EKG 12 Lead [EKG Documentation Completion] [RC] STAT Care 04/12/21 07:40 Active Peripheral IV Care [RC] . DIRECTED Care 04/12/21 07:41 Active Peripheral IV Care [RC] . DIRECTED Care 04/12/21 07:42 Active Consult to Poison Control [CONS] Stat Cons 04/12/21 08:16 Ordered DRUG SCREEN URINE BIORAD [URCHEM] Stat Lab 04/12/21 07:40 Ordered HCG QUALITATIVE,URINE [URCHEM] Stat Lab 04/12/21 07:40 Ordered INR,PT,PROTHROMBIN TIME [COAG] Stat Lab 04/12/21 07:58 Received PTT,PARTIAL THROMBOPLSTIN TIME [COAG] Stat Lab 04/12/21 07:58 Received UA RFX SANTANA AND CULT IF INDIC [URIN] Stat Lab 04/12/21 07:40 Ordered VALPROIC ACID [REF] Stat Lab 04/12/21 07:58 Received Fat Emulsion [Intralipid 20%] 250 ml Med 04/12/21 07:44 Active IV .BOLUS Fat Emulsion [Intralipid 20%] 250 ml Med 04/12/21 07:45 Active IV ASDIRECTED Ondansetron [Zofran] Med 04/12/21 08:43 Once 4 mg IV ONETIME ONE Sodium Chloride 0.9% [Saline Flush] Med 04/12/21 07:41 Active 10 ml FLUSH ASDIRECTED PRN Sodium Chloride 0.9% [Saline Flush] Med 04/12/21 07:42 Active 10 ml FLUSH ASDIRECTED PRN Peripheral IV Insertion Adult [OM.PC] Stat Oth 04/12/21 07:40 Ordered Peripheral IV Insertion Adult [OM.PC] Stat Ot 04/12/21 07:42 Ordered Medication Orders Fat Emulsion Intravenous (Intralipid 20%) 250 mls @ 15,000 mls/hr IV .BOLUS ARIANNA Last Admin: 04/12/21 08:33 Dose: 15,000 mls/hr Documented by: XAVIER Fat Emulsion Intravenous (Intralipid 20%) 250 mls @ 1,500 mls/hr IV ASDIRECTED ARIANNA Last Admin: 04/12/21 08:35 Dose: 1,500 mls/hr Documented by: XAVIER Ondansetron HCl (Ondansetron 4 Mg/2 Ml Sdv) 4 mg IV ONETIME ONE Stop: 04/12/21 08:44 Sodium Chloride (Sodium Chloride 0.9% 10 Ml Syringe) 10 ml FLUSH ASDIRECTED PRN PRN Reason: Keep Vein Open Sodium Chloride (Sodium Chloride 0.9% 10 Ml Syringe) 10 ml FLUSH ASDIRECTED PRN PRN Reason: Keep Vein Open Labs: Laboratory Tests 04/12/21 04/12/21 04/12/21 Range/Units 07:58 07:58 07:58 WBC 11.5 H (5.0-10.0) 10^3/uL RBC 3.60 L (4.2-5.4) 10^6/uL Hgb 10.9 L (12.0-16.0) g/dL Hct 32.4 L (37.0-47.0) % MCV 90.0 (80-100) fL MCH 30.3 (27.0-34.0) pg MCHC 33.6 (33.0-35.0) g/dL Plt Count 312 (150-450) 10^3/uL Neut % (Auto) 72.9 (42.2-75.2) % Lymph % (Auto) 16.2 L (20.5-50.1) % Liberty % (Auto) 9.0 H (2-8) % Eos % (Auto) 1.3 (1.0-3.0) % Baso % (Auto) 0.6 (0.0-1.0) % Sodium 139 (136-145) mmol/L Potassium 4.0 (3.5-5.1) mmol/L Chloride 103 (98-107) mmol/L Carbon Dioxide 28 (21-32) mmol/L Anion Gap 12.0 (7-13) mEq/L BUN 14 (7-18) mg/dL Creatinine 0.62 (0.55-1.02) mg/dL Est Cr Clr Drug Dosing 92.53 mL/min Estimated GFR (MDRD) > 60 BUN/Creatinine Ratio 22.6 (No establ ref range) Glucose 122 H (70-99) mg/dL POC Glucose (70-99) mg/dL Lactic Acid 0.8 (0.4-2.0) mmol/L Calcium 8.6 (8.5-10.1) mg/dL Magnesium 2.0 (1.8-2.4) mg/dL Total Bilirubin 0.4 (0.2-1.0) mg/dL AST 10 L (15-37) U/L ALT 21 (14-59) U/L Alkaline Phosphatase 32 L (46-116) U/L Troponin I High Sens < 4 (<=51) pg/mL Total Protein 6.4 (6.4-8.2) g/dL Albumin 3.3 L (3.4-5.0) g/dL Globulin 3.1 Albumin/Globulin Ratio 1.06 TSH, Ultra Sensitive 1.35 (0.36-3.74) uIU/mL Salicylates (2.8-20(Therapeutic)) mg/dL Acetaminophen (10-30 (Therapeutic)) ug/mL Ethyl Alcohol < 3 (0) mg/dL 04/12/21 04/12/21 04/12/21 Range/Units 07:58 07:58 08:15 WBC (5.0-10.0) 10^3/uL RBC (4.2-5.4) 10^6/uL Hgb (12.0-16.0) g/dL Hct (37.0-47.0) % MCV (80-100) fL MCH (27.0-34.0) pg MCHC (33.0-35.0) g/dL Plt Count (150-450) 10^3/uL Neut % (Auto) (42.2-75.2) % Lymph % (Auto) (20.5-50.1) % Liberty % (Auto) (2-8) % Eos % (Auto) (1.0-3.0) % Baso % (Auto) (0.0-1.0) % Sodium (136-145) mmol/L Potassium (3.5-5.1) mmol/L Chloride (98-107) mmol/L Carbon Dioxide (21-32) mmol/L Anion Gap (7-13) mEq/L BUN (7-18) mg/dL Creatinine (0.55-1.02) mg/dL Est Cr Clr Drug Dosing mL/min Estimated GFR (MDRD) BUN/Creatinine Ratio (No establ ref range) Glucose (70-99) mg/dL POC Glucose 108 H (70-99) mg/dL Lactic Acid (0.4-2.0) mmol/L Calcium (8.5-10.1) mg/dL Magnesium (1.8-2.4) mg/dL Total Bilirubin (0.2-1.0) mg/dL AST (15-37) U/L ALT (14-59) U/L Alkaline Phosphatase (46-116) U/L Troponin I High Sens (<=51) pg/mL Total Protein (6.4-8.2) g/dL Albumin (3.4-5.0) g/dL Globulin Albumin/Globulin Ratio TSH, Ultra Sensitive (0.36-3.74) uIU/mL Salicylates < 2.8 L (2.8-20(Therapeutic)) mg/dL Acetaminophen 0 L (10-30 (Therapeutic)) ug/mL Ethyl Alcohol (0) mg/dL Meds: Medications Generic Name Dose Route Start Last Admin Trade Name Freq PRN Reason Stop Dose Admin Fat Emulsion Intravenous 250 mls @ 15,000 mls/hr 04/12/21 07:44 04/12/21 08:33 Intralipid 20% IV 15,000 mls/hr .BOLUS ARIANNA Administration Fat Emulsion Intravenous 250 mls @ 1,500 mls/hr 04/12/21 07:45 04/12/21 08:35 Intralipid 20% IV 1,500 mls/hr ASDIRECTED ARIANNA Administration Ondansetron HCl 4 mg 04/12/21 08:43 Ondansetron 4 Mg/2 Ml Sdv IV 04/12/21 08:44 ONETIME ONE Sodium Chloride 10 ml 04/12/21 07:41 Sodium Chloride 0.9% 10 Ml Syringe FLUSH ASDIRECTED PRN Keep Vein Open Sodium Chloride 10 ml 04/12/21 07:42 Sodium Chloride 0.9% 10 Ml Syringe FLUSH ASDIRECTED PRN Keep Vein Open Discontinued Medications Generic Name Dose Route Start Last Admin Trade Name Freq PRN Reason Stop Dose Admin Charcoal 50 gm 04/12/21 07:55 04/12/21 08:08 Activated Charcoal/Water Susp 50 Gm/240 Ml Tube PO 04/12/21 07:56 50 gm ONETIME ONE Administration Sodium Chloride 1,000 mls @ 999 mls/hr 04/12/21 07:42 04/12/21 08:07 Normal Saline IV 04/12/21 08:42 999 mls/hr .BOLUS ONE Administration Naloxone HCl 2 mg 04/12/21 07:56 04/12/21 08:07 Naloxone 2 Mg/2 Ml Syringe IVPUSH 04/12/21 07:57 2 mg ONETIME ONE Administration - Re-Assessments/Exams Free Text/Narrative Re-Assessment/Exam: 04/12/21 Pt immediately assessed on arrival, placed on property assessment monitor, EKG and IV access obtained. NS 1L IV bolus initiated. Pt had a dramatic response to Narcan 2mg IVP. Oral charcoal decontamination. Blood obtained for lab, then Intralipid rescue initiated with Intralipid 20% 1.5ml/kg bolus, followed by 025ml/kg/min for 60 mins. Transfer initiated as pt deemed to serious to keep in [place] with no ICU available. A minimum of 12 hours monitoring is needed. However, with pt's Fentanyl abuse and mental health history she may require a longer observation period and mental health evaluation prior to discharge. Dr. Roca has agreed to accept the pt at [facility]. Departure - Departure Time of Disposition: 08:31 Disposition: DC/Tfer to Acute Hospital 02 Condition: Serious Clinical Impression: Fentanyl use disorder, severe, dependence Clonidine overdose Qualifiers: Encounter type: initial encounter Injury intent: undetermined intent Qualified Code(s): T46.5X4A - Poisoning by other antihypertensive drugs, undetermined, initial encounter - Discharge Information *PRESCRIPTION DRUG MONITORING PROGRAM REVIEWED*: No *COPY OF PRESCRIPTION DRUG MONITORING REPORT IN PATIENT CHADD: No Forms: ED Department Discharge, Interfacility Transfer [facility] Sepsis Event Note (ED) - Focused Exam Vital Signs: Vital Signs Temp Pulse Resp BP Pulse Ox 04/12/21 07:43 97.7 F 44 L 16 131/104 H 97 - My Orders Last 24 Hours: My Active Orders 04/12/21 07:39 Blood Glucose Check, Bedside [RC] ONETIME 04/12/21 07:40 EKG 12 Lead [EKG Documentation Completion] [RC] STAT DRUG SCREEN URINE BIORAD [URCHEM] Stat HCG QUALITATIVE,URINE [URCHEM] Stat UA RFX SANTANA AND CULT IF INDIC [URIN] Stat Peripheral IV Insertion Adult [OM.PC] Stat 04/12/21 07:41 Peripheral IV Care [RC] . DIRECTED Sodium Chloride 0.9% [Saline Flush] 10 ml FLUSH ASDIRECTED PRN 04/12/21 07:42 Peripheral IV Care [RC] . DIRECTED Sodium Chloride 0.9% [Saline Flush] 10 ml FLUSH ASDIRECTED PRN Peripheral IV Insertion Adult [OM.PC] Stat 04/12/21 07:44 Fat Emulsion [Intralipid 20%] 250 ml IV .BOLUS 04/12/21 07:45 Fat Emulsion [Intralipid 20%] 250 ml IV ASDIRECTED 04/12/21 07:58 INR,PT,PROTHROMBIN TIME [COAG] Stat PTT,PARTIAL THROMBOPLSTIN TIME [COAG] Stat VALPROIC ACID [REF] Stat 04/12/21 08:16 Consult to Poison Control [CONS] Stat 04/12/21 08:43 Ondansetron [Zofran] 4 mg IV ONETIME ONE - Assessment/Plan Last 24 Hours: My Active Orders 04/12/21 07:39 Blood Glucose Check, Bedside [RC] ONETIME 04/12/21 07:40 EKG 12 Lead [EKG Documentation Completion] [RC] STAT DRUG SCREEN URINE BIORAD [URCHEM] Stat HCG QUALITATIVE,URINE [URCHEM] Stat UA RFX SANTANA AND CULT IF INDIC [URIN] Stat Peripheral IV Insertion Adult [OM.PC] Stat 04/12/21 07:41 Peripheral IV Care [RC] . DIRECTED Sodium Chloride 0.9% [Saline Flush] 10 ml FLUSH ASDIRECTED PRN 04/12/21 07:42 Peripheral IV Care [RC] . DIRECTED Sodium Chloride 0.9% [Saline Flush] 10 ml FLUSH ASDIRECTED PRN Peripheral IV Insertion Adult [OM.PC] Stat 04/12/21 07:44 Fat Emulsion [Intralipid 20%] 250 ml IV .BOLUS 04/12/21 07:45 Fat Emulsion [Intralipid 20%] 250 ml IV ASDIRECTED 04/12/21 07:58 INR,PT,PROTHROMBIN TIME [COAG] Stat PTT,PARTIAL THROMBOPLSTIN TIME [COAG] Stat VALPROIC ACID [REF] Stat 04/12/21 08:16 Consult to Poison Control [CONS] Stat 04/12/21 08:43 Ondansetron [Zofran] 4 mg IV ONETIME ONE
[~2021-04-12 08:06] MED LIST changes: +Fat Emulsion 250 ML IV SCH; +Naloxone 2 MG/2 ML Syringe IVPUSH ONE; -Ondansetron 4 MG/2 ML SDV IVPUSH ONE; +Sodium Chloride 0.9% 10 ML Syringe FLUSH PRN
[2021-04-12 08:36] LABS: CHLORIDE,CL 103 mmol/L (98-107); SODIUM,NA 139 mmol/L (136-145)
[2021-04-12 08:39] VITALS: BP 131/104; PULSE 44
[2021-04-12] MEDS ORDERED: Ondansetron 4 MG/2 ML SDV IV ONE (08:43)
[2021-04-12 10:05] LABS: PTT,PARTIAL THROMBOPLSTIN TIME 27.9 SEC (22.0-34.0)
== END 2021-04-12 09:00 ==
LOC: DL.ED 08:06
DX: T46.5X4A Poisoning by other antihypertensive drugs, undetermined, initial encounter (principal); F11.20 Opioid dependence, uncomplicated; E78.00 Pure hypercholesterolemia, unspecified; I10 Essential (primary) hypertension; J45.909 Unspecified asthma, uncomplicated; Z88.0 Allergy status to penicillin; Z88.1 Allergy status to other antibiotic agents; Z88.2 Allergy status to sulfonamides; Z88.8 Allergy status to other drugs, medicaments and biological substances
CPT/HCPCS: 36415; 80053; 80143; 80164; 80179; 80307; 82947; 83605; 83735; 84443; 84484; 85025; 85610; 85730; 93005; 96374; 96375; 99284; 99285; J2310; J2405; J7030